=== PATIENT | male | born 1935 | race African-American/Black ===

== ENCOUNTER → 2016-07-09 | Outpatient (CLI) | payer MEDICARE, BC ==
--- NOTE | 2016-07-10 12:48 | XCELERA REPORT ---
[address] [address] Lower Extremity Venous Evaluation Name: GURPREET RAO Age: 81 yrs Gender: Male : 1935 Patient Status: Outpatient Patient Location: Study Date: 07/09/2016 01:18 PM Procedure: Color flow and duplex imaging of the veins of the left lower extremity as well as the right Common Femoral vein. Reason For Study: LLE SWELLING Ordering Physician: ROSY SALMON Performed By: Carissa Aponte Right Sided Venous Evaluation The right common femoral vein is fully compressible. Spontaneous and phasic flow is present in the right common femoral vein. Left Sided Venous Evaluation Non vascular lucent cyst in the Popliteal fossa. 2.5 x 1.9 x 4.5 cms. Normal vessel filling wall to wall, compression and augmentation as well as Colour flow down to the infrageniculate veins. Interpretation Summary No duplex evidence of DVT or obstruction in the left lower extremity nor in the right Common Femoral vein. Popliteal cyst noted on the left. : ROSY SALMON > Deepak Hoover
== END ==
LOC: SP 13:12
PROVIDERS: ATTEND Internal Medicine
DX: R22.42 Localized swelling, mass and lump, left lower limb (principal)
CPT/HCPCS: 93971

== ENCOUNTER → 2016-07-16 | Outpatient (CLI) | payer MEDICARE, BC | LOC: RAD 13:11 | PROVIDERS: ATTEND Internal Medicine | DX: M25.511 Pain in right shoulder (principal); M75.101 Unspecified rotator cuff tear or rupture of right shoulder, not specified as traumatic; X58.XXXA Exposure to other specified factors, initial encounter ==

== ENCOUNTER → 2017-08-26 | Outpatient (CLI) | payer MEDICARE, BC ==
[2017-08-26 14:58] LABS: ABSOLUTE EOSINOPHILS # (AUTO) 0.2 10^3/uL (0.0-0.6); ABSOLUTE LYMPHOCYTES (AUTO) 0.8 10^3/uL (0.5-4.7); ABSOLUTE MONOCYTES (AUTO) 0.6 10^3/uL (0.1-1.4); ABSOLUTE NEUT (AUTO) 2.4 10^3/uL (1.7-8.2); BASOPHILS % (AUTO) 0.8 % (0-2); EOSINOPHILS % (AUTO) 5.8 % (0-6); HEMATOCRIT 34.4 % (37.9-51.0); HEMOGLOBIN 11.4 g/dL (13.5-17.0); LYMPHOCYTES % (AUTO) 19.5 % (13-45); MEAN CORPUSCULAR HEMOGLOBIN 28.6 pg (27.0-33.4); MEAN CORPUSCULAR HGB CONC 33.1 g/dL (32.0-36.0); MEAN CORPUSCULAR VOLUME 87 fl (80-97); MONOCYTES % (AUTO) 15.6 % (3-13); PLATELET COUNT 219 10^3/uL (150-450); RED BLOOD COUNT 3.97 10^6/uL (4.35-5.55); RED CELL DISTRIBUTION WIDTH 14.4 % (11.5-14.0); SEGMENTED NEUTROPHILS % (AUTO) 58.3 % (42-78); TOTAL CELLS COUNTED % (AUTO) 100 %; WHITE BLOOD COUNT 4.1 10^3/uL (4.0-10.5)
[2017-08-26 15:11] LABS: APPEARANCE,URINE SLIGHTLY-CLOUDY; BILIRUBIN,URINE NEGATIVE (NEGATIVE); COLOR,URINE YELLOW; GLUCOSE, URINE NEGATIVE (NEGATIVE); KETONES,URINE NEGATIVE (NEGATIVE); LEUKOCYTE ESTERASE,URINE NEGATIVE (NEGATIVE); NITRITE,URINE NEGATIVE (NEGATIVE); PROTEIN,URINE NEGATIVE (NEGATIVE); URINE SPECIFIC GRAVITY 1.016; UROBILINOGEN,URINE NEGATIVE mg/dL (<2.0)
[2017-08-26 15:23] LABS: ALANINE AMINOTRANSFERASE 73 U/L (21-72); ALBUMIN 3.2 g/dL (3.5-5.0); ALKALINE PHOSPHATASE 149 U/L (38-126); ANION GAP 9 (5-19); ASPARTATE AMINO TRANSFERASE 72 U/L (17-59); BILIRUBIN,DIRECT 0.3 mg/dL (0.0-0.4); BILIRUBIN,TOTAL 0.3 mg/dL (0.2-1.3); BLOOD UREA NITROGEN 20 mg/dL (7-20); CALCIUM 9.3 mg/dL (8.4-10.2); CARBON DIOXIDE 32 mmol/L (22-30); CHLORIDE 98 mmol/L (98-107); GLUCOSE 104 mg/dL (75-110); POTASSIUM 4.5 mmol/L (3.6-5.0); SODIUM 138.5 mmol/L (137-145); TOTAL PROTEIN 6.2 g/dL (6.3-8.2); URIC ACID 4.5 mg/dL (3.5-8.5)
[2017-08-26 15:39] LABS: FREE T4 (FREE THYROXINE) 0.88 ng/dL (0.78-2.19)
[2017-08-26 15:54] LABS: THYROID STIMULATING HORMONE 3.34 uIU/mL (0.47-4.68)
[2017-08-27 11:40] LABS: CREATININE URINE 91.3 mg/dL (Not Estab.); MICROALBUMIN URINE 21.9 ug/mL (Not Estab.)
== END ==
LOC: OD 13:32
PROVIDERS: ATTEND Internal Medicine
DX: I10 Essential (primary) hypertension (principal)
CPT/HCPCS: 36415; 80053; 81001; 82043; 82570; 84439; 84443; 84550; 85025

== ENCOUNTER → 2017-08-27 | Outpatient (CLI) | payer MEDICARE, BC ==
--- NOTE | 2017-08-27 11:22 | RADIOLOGY REPORT (SQ) ---
EXAM DESCRIPTION: WRIST LEFT 2 VIEWS COMPLETED DATE/TIME: 08/27/2017 10:59 am REASON FOR STUDY: PAIN IN LEFT WRIST M25.532 PAIN IN LEFT WRIST COMPARISON: None. NUMBER OF VIEWS: Three views. TECHNIQUE: AP, lateral, and oblique radiographic images acquired of the left wrist. LIMITATIONS: None. FINDINGS: MINERALIZATION: Normal. BONES: No acute fracture or dislocation. No worrisome bone lesions. Normal alignment. No significant osteophytes. JOINTS: No erosions. No pat-articular osteopenia. No chondrocalcinosis. SOFT TISSUES: No swelling. No calcifications. OTHER: No other significant finding. IMPRESSION: NEGATIVE STUDY OF THE LEFT WRIST. NO EXPLANATION FOR PAIN. TECHNICAL DOCUMENTATION: JOB ID: [id number] [employer]- All Rights Reserved Reading location - IP/workstation name: [email or web address]
== END ==
LOC: OD 10:34
PROVIDERS: ATTEND Internal Medicine
DX: M25.532 Pain in left wrist (principal)

== ENCOUNTER → 2018-04-06 | Outpatient (CLI) | payer MEDICARE, BC ==
--- NOTE | 2018-04-06 15:29 | RADIOLOGY REPORT (SQ) ---
EXAM DESCRIPTION: CT ABD/PELVIS NO ORAL OR IV COMPLETED DATE/TIME: 04/06/2018 3:02 pm REASON FOR STUDY: RLQ PAIN (R10.31) R10.31 RIGHT LOWER QUADRANT PAIN COMPARISON: CT abdomen pelvis 02/25/2012, 05/23/2010 CT chest 03/05/2016 TECHNIQUE: CT scan of the abdomen and pelvis performed without intravenous or oral contrast. Images reviewed with lung, soft tissue, and bone windows. Reconstructed coronal and sagittal MPR images revi ewed. All images stored on PACS. All CT scanners at this facility use dose modulation, iterative reconstruction, and/or weight based d osing when appropriate to reduce radiation dose to as low as reasonably achievable (ALARA). [facility]: Dose Right [facility]: CareDose [facility]: Dose Right [facility]: Teradose 4D [facility]: Smart [employer] RADIATION DOSE: CT Rad equipment meets quality standard of care and radiation dose reduction techniq ues were employed. CTDIvol: 4.0 mGy. DLP: 213 mGy-cm.mGy. LIMITATIONS: None. FINDINGS: LOWER CHEST: No significant findings. No nodules or infiltrates. Moderate coronary artery calcification NON-CONTRASTED LIVER, SPLEEN, ADRENALS: Evaluation limited by lack of IV contrast. No identified sign ificant masses. PANCREAS: No masses. No peripancreatic inflammatory changes. GALLBLADDER: Surgically absent RIGHT KIDNEY AND URETER: Complex cyst 3.3 cm right midpole kidney posteriorly with septation and calc ifications. Follow-up dedicated renal ultrasound recommended. Punctate calcifications in the right renal hilum upper and lower poles, likely tiny intrarenal nonobstructive 2 mm stones. No hydroneph rosis or hydroureter. LEFT KIDNEY AND URETER: No suspicious masses. Assessment limited by lack of IV contrast. Tiny less than 2 mm intrarenal upper and lower pole nonobstructive stones No hydronephrosis or hydroureter. AORTA AND RETROPERITONEUM: No aneurysm. No retroperitoneal masses or adenopathy. BOWEL AND PERITONEAL CAVITY: No obvious masses or inflammatory changes. No free fluid. APPENDIX: Normal. PELVIS, BLADDER, AND ABDOMINAL WALL:No abnormal masses. No free fluid. Bladder normal. Radiotherapy treatment seeds in the prostate BONES: Diffuse degenerative changes lumbar spine OTHER: No other significant finding. IMPRESSION: No acute findings. Complex cyst 3.3 cm right midpole kidney posteriorly, recommend dedicated renal ultrasound for follow up COMMENT: Quality ID # [id number]: Final reports with documentation of one or more dose reduction techniques (e.g., Automated exposure control, adjustment of the mA and/or kV according to patient size, use of iterative reconstruction technique) TECHNICAL DOCUMENTATION: JOB ID: [id number] [employer]- All Rights Reserved Reading location - IP/workstation name: [facility]
== END ==
LOC: RAD 14:33
PROVIDERS: ATTEND Internal Medicine
DX: R10.31 Right lower quadrant pain (principal)
CPT/HCPCS: 74176

== ENCOUNTER → 2018-04-11 | Outpatient (CLI) | payer MEDICARE, BC ==
--- NOTE | 2018-04-11 15:50 | RADIOLOGY REPORT (SQ) ---
EXAM DESCRIPTION: U/S RETROPERITON (RENAL/AORTA) COMPLETED DATE/TIME: 04/11/2018 2:15 pm REASON FOR STUDY: RLQ PAIN R10.31 RIGHT LOWER QUADRANT PAIN COMPARISON: CT abdomen and pelvis examination dated 04/06/2017 TECHNIQUE: Dynamic and static grayscale images acquired of the kidneys and bladder and recorded on P ACS. Additional selected color Doppler and spectral images recorded. LIMITATIONS: None. FINDINGS: RIGHT KIDNEY: The right kidney measures 7.5 cm in length, the measurement may be underest imated due to limited visualization due to bowel gas. In the superior mid aspect of the kidney, a 3. 0 x 3.1 x 2.8 cm cyst. This finding may correlate to the CT examination dated 04/06/2018. No eviden ce of hydronephrosis. LEFT KIDNEY: The visualization of the left kidney is also somewhat limited due to bowel gas. The me asurement may be slightly underestimated. The left kidney measures 8.5 cm in length. Normal echogen icity. No solid or suspicious masses. No hydronephrosis. No calcifications. BLADDER: The urinary bladder is incompletely distended. The patient voided prior to the examination . OTHER FINDINGS: No other significant finding. IMPRESSION: 1. The examination is somewhat limited due to overlying bowel gas. 2. A cyst is identified in the superior mid aspect of the right kidney. This finding may correlate to the CT examination dated 04/06/2018. A follow-up noncontrast CT kidney examination in six months to document for stability. TECHNICAL DOCUMENTATION: JOB ID: [id number] [employer]- All Rights Reserved Reading location - IP/workstation name: [email or web address]
== END ==
LOC: RAD 12:37
PROVIDERS: ATTEND Internal Medicine
DX: K76.89 Other specified diseases of liver (principal); R10.31 Right lower quadrant pain
CPT/HCPCS: 76770

== ENCOUNTER → 2018-05-04 | Outpatient (CLI) | payer MEDICARE, BC ==
--- NOTE | 2018-05-04 16:18 | RADIOLOGY REPORT (SQ) ---
EXAM DESCRIPTION: CHEST PA/LATERAL COMPLETED DATE/TIME: 05/04/2018 3:58 pm REASON FOR STUDY: PRE-OP COMPARISON: 11/16/2012 EXAM PARAMETERS: NUMBER OF VIEWS: two views TECHNIQUE: Digital Frontal and Lateral radiographic views of the chest acquired. RADIATION DOSE: NA LIMITATIONS: none FINDINGS: LUNGS AND PLEURA: No opacities, masses or pneumothorax. No pleural effusion. MEDIASTINUM AND HILAR STRUCTURES: No masses or contour abnormalities. HEART AND VASCULAR STRUCTURES: Heart normal size. No evidence for failure. BONES: No acute findings. HARDWARE: None in the chest. OTHER: No other significant finding. IMPRESSION: NO SIGNIFICANT RADIOGRAPHIC FINDING IN THE CHEST. TECHNICAL DOCUMENTATION: JOB ID: [id number] [employer]- All Rights Reserved Reading location - IP/workstation name: [email or web address]
--- NOTE | 2018-05-04 19:11 | EKG REPORT ---
SEVERITY:- OTHERWISE NORMAL ECG - SINUS RHYTHM BORDERLINE LEFT AXIS DEVIATION : Confirmed by: David Gunn 04-May-2018 19:09:30
== END ==
LOC: OD 14:54
PROVIDERS: ATTEND Orthopaedic Surgery
DX: M17.12 Unilateral primary osteoarthritis, left knee (principal)
CPT/HCPCS: 71046; 93005; 93010

== ENCOUNTER 2018-06-01 05:32 | Inpatient (IN) | payer MEDICARE, BC ==
[~2018-06-01 05:32] MED LIST: BUPIVACAINE INJ/PF LIPOSOME/PF 266 MG/20 ML SDV INJ PRN; CEFAZOLIN INJ 1 GM VIAL IV PRN; CEFAZOLIN INJ 1 GM VIAL ONE; CLINDAMYCIN 600 MG/D5W RTU 600 MG/50 ML RTUPB IV PRN; IBUPROFEN 800 MG in NORMAL SALINE 250 ML IV PRN; LACTATED RINGERS 1000 ML IV PRN; LANSOPRAZOLE 15 MG TAB.RAP.DR ONE; LANSOPRAZOLE 15 MG TAB.RAP.DR PO PRN; LIDOCAINE 0.5% INJ-PF (5 MG/ML) 50 ML SDV SUBCUT PRN; OXYCODONE HCL SR 10 MG TABLET PO ONE; OXYCODONE HCL SR 10 MG TABLET PO PRN; VANCOMYCIN HCL 1,000 MG in DEXTROSE 5%-WATER 250 ML IV PRN
[2018-06-01] MEDS ORDERED: LIDOCAINE 2% INJ (20 MG/ML) 20 ML MDV ONE (06:44)
[2018-06-01] MEDS ORDERED: BUPIVACAINE HCL/DEX-WATER/PF 15 MG/2 ML AMPULE ONE (06:44)
[2018-06-01] MEDS ORDERED: FENTANYL CITRATE INJ/PF 100 MCG/2 ML AMPUL ONE (06:45)
[2018-06-01] MEDS ORDERED: LIDOCAINE 2% INJ-PF (20 MG/ML) 10 ML AMPUL ONE (06:45)
[2018-06-01] MEDS ORDERED: PROPOFOL INJ 200 MG/20 ML VIAL IV ONE (06:46)
[2018-06-01] MEDS ORDERED: MIDAZOLAM 2 MG/2 ML INJ ONE (06:46)
[2018-06-01] MEDS ORDERED: EPHEDRINE SULFATE INJ 50 MG/1 ML AMPULE ONE (06:46)
[2018-06-01] MEDS ORDERED: ONDANSETRON HCL INJ/PF 4 MG/2 ML SDV ONE (06:46)
[2018-06-01] MEDS ORDERED: THROMBIN (BOVINE) TOPICAL 20000 UNIT VIAL ONE (07:07)
[2018-06-01] MEDS ORDERED: BUPIVACAINE HCL 0.5%-EPI 1:200000 INJ/PF 30 ML VIAL ONE (07:07)
[2018-06-01] MEDS ORDERED: CLINDAMYCIN 600 MG/D5W RTU 600 MG/50 ML RTUPB IV ONE (07:13)
[2018-06-01] MEDS ORDERED: MEPERIDINE HCL/PF INJ 25 MG/1 ML DISP.SYRIN IV PRN (07:28)
[2018-06-01] MEDS ORDERED: PROMETHAZINE HCL INJ 25 MG/1 ML VIAL IV PRN ×2 (07:28)
[2018-06-01] MEDS ORDERED: MORPHINE SULFATE 10 MG/ML INJ IV PRN ×5 (07:28→08:47)
[2018-06-01] MEDS ORDERED: FENTANYL CITRATE INJ/PF 100 MCG/2 ML AMPUL IV PRN ×3 (07:28)
[2018-06-01] MEDS ORDERED: DIPHENHYDRAMINE HCL 50 MG/ML VIAL IV PRN ×2 (07:28→08:47)
[2018-06-01] MEDS ORDERED: ONDANSETRON 4 MG TAB.RAPDIS PO PRN (08:47)
[2018-06-01] MEDS ORDERED: MAG HYDROX/AL HYDROX/SIMETH SUSP 30 ML UDCUP PO PRN (08:47)
[2018-06-01] MEDS ORDERED: ONDANSETRON HCL INJ/PF 4 MG/2 ML SDV IV PRN (08:47)
[2018-06-01] MEDS ORDERED: ZOLPIDEM TARTRATE 5 MG TABLET PO PRN (08:47)
[2018-06-01] MEDS ORDERED: RINGERS SOLUTION,LACTATED 1,000 ML IV PRN (08:47)
--- NOTE | 2018-06-01 08:52 | Operative Report ---
Operative Report DATE OF SURGERY: 06/01/18 PREOPERATIVE DIAGNOSIS: Left knee arthritis OPERATION: Left knee arthroplasty SURGEON: QAMAR BURNETT ANESTHESIA: Spinal TISSUE REMOVED OR ALTERED: Bone to pathology ESTIMATED BLOOD LOSS: 100 PROCEDURE: Implants used: Femur: Jackson triathlon size 7 CR femur Tibia: 7 tibia Tibial liner: 11 mm CS insert Patella: 40 mm oval patella Procedure with the patient supine on the operating table the left the limb is prepped and draped in a sterile fashion. The limb was elevated for exsanguination and the tourniquet inflated to 280 torr. A standard midline median parapatellar approach the knee is taken. Access is gained to the femoral canal through the intercondylar notch. Intramedullary alignment instrumentation used to resect 10 mm of distal femur in 5 of valgus. Sizing guide indicated a size 7 femur. Appropriate cutting jig is then used to fashion anterior posterior and chamfer cuts. A trial reduction femurs performed and this is judged to be adequate. The medial femoral condyle has a significant large subchondral cyst. This is evacuated of the soft tissue. The femoral component is displaced slightly laterally a midline to improve the support for the femoral component. Attention was next turned to the tibia. Using an extra medullary alignment system 13 millimeters was resected off the lateral tibial plateau to make up for a medial tibial plateau defect.. This is sized to a size 7 tibia. A trial reduction was now performed with a 7 femur and a 7 tibia using a 11 millimeters spacer. It is full extension and central patellofemoral tracking. The articular surface the patella was next resected using an oscillating saw. All trial implants were removed. Polymethylmethacrylate is mixed and used to cement the above implants in place. On adequate curing the cement excess cement was removed the tourniquet was deflated hemostasis obtained the wound is then closed in layers using interrupted Vicryl followed by luis. A sterile compressive dressing was applied and the patient returned to recovery room in satisfactory condition.
--- NOTE | 2018-06-01 09:37 | RADIOLOGY REPORT (SQ) ---
EXAM DESCRIPTION: KNEE LEFT 2 VIEWS COMPLETED DATE/TIME: 06/01/2018 9:28 am REASON FOR STUDY: Post OP -Long Cassette in PACU M17.12 UNILATERAL PRIMARY OSTEOARTHRITIS, LEFT KNE E COMPARISON: None. NUMBER OF VIEWS: Two views left knee TECHNIQUE: Digital radiographic images of the left knee post-procedure. LIMITATIONS: None. FINDINGS: BONES: No worrisome or unexpected findings post-procedure. Bones are osteopenic/osteopor otic DEVICE: Cemented total knee replacement with patellar resurfacing SOFT TISSUES: No worrisome findings. Expected postoperative soft tissue changes. IMPRESSION: SATISFACTORY POSTOPERATIVE LEFT KNEE. TECHNICAL DOCUMENTATION: JOB ID: [id number] [employer]- All Rights Reserved Reading location - IP/workstation name: [email or web address]
[2018-06-01] MEDS ORDERED: TRANEXAMIC ACID INJ/PF 1,000 MG/10 ML SDV IV ONE (11:53)
[2018-06-01] MEDS: PRENATAL VITAMIN W DHA CAPSULE PO SCH (14:14)
[2018-06-01] MEDS: SENNOSIDES/DOCUSATE 8.6-50 MG 1 EACH TABLET PO SCH ×2 (14:14→17:36)
[2018-06-01] MEDS: TRANEXAMIC ACID INJ/PF 1,000 MG/10 ML SDV IV SCH (14:14)
[2018-06-01] MEDS: IBUPROFEN 800 MG in NORMAL SALINE 250 ML IV SCH ×2 (14:14→22:16)
[2018-06-01] MEDS: OXYCODONE HCL SR 10 MG TABLET PO SCH ×2 (14:14→22:17)
[2018-06-01] MEDS: OXYCODONE HCL IR 5 MG TABLET PO PRN (14:18)
[2018-06-01] MEDS ORDERED: ACETAMINOPHEN IV ONE (14:47)
[2018-06-01] MEDS ORDERED: ACETAMINOPHEN 1,000 MG/100 ML RTUPB IV ONE (15:00)
[2018-06-01] MEDS ORDERED: VANCOMYCIN HCL 1,000 MG in DEXTROSE 5%-WATER 250 ML IV ONE (20:47)
[2018-06-02 06:21] LABS: HEMATOCRIT 30.1 % (37.9-51.0); HEMOGLOBIN 9.9 g/dL (13.5-17.0); MEAN CORPUSCULAR HEMOGLOBIN 27.8 pg (27.0-33.4); MEAN CORPUSCULAR VOLUME 84 fl (80-97); PLATELET COUNT 196 10^3/uL (150-450); RED BLOOD COUNT 3.57 10^6/uL (4.35-5.55); RED CELL DISTRIBUTION WIDTH 15.9 % (11.5-14.0); WHITE BLOOD COUNT 6.4 10^3/uL (4.0-10.5)
[2018-06-02] MEDS: IBUPROFEN 800 MG in NORMAL SALINE 250 ML IV SCH ×3 (06:30→21:23)
[2018-06-02] MEDS: LANSOPRAZOLE 30 MG TAB.RAP.DR PO SCH (06:33)
[2018-06-02 06:41] LABS: BLOOD UREA NITROGEN 14 mg/dL (7-20); CALCIUM 8.3 mg/dL (8.4-10.2); GLUCOSE 103 mg/dL (75-110); POTASSIUM 4.4 mmol/L (3.6-5.0)
[2018-06-02 06:47] LABS: CARBON DIOXIDE 29 mmol/L (22-30); CHLORIDE 103 mmol/L (98-107); SODIUM 134.7 mmol/L (137-145)
[2018-06-02 06:51] LABS: ANION GAP 3 (5-19)
--- NOTE | 2018-06-02 06:51 | PDOC PROGRESS REPORT ---
Subjective Progress Note for:: 06/02/18 Reason For Visit: M17.12 UNILATERAL PRIMARY OSTEOARTHRITIS, LEFT KNE 83-year-old black male now postop day 1 status post left knee arthroplasty. Uneventful postoperative night. Patient ambulated 40 feet with physical therapy yesterday. Physical Exam Vital Signs: Temp Pulse Resp BP Pulse Ox 37.4 C 96 19 97/56 L 97 06/01/18 22:59 06/01/18 22:59 06/01/18 22:59 06/01/18 22:59 06/01/18 22:59 Intake & Output 05/31/18 06/01/18 06/02/18 06:59 06:59 06:59 Intake Total 250 6194 Output Total 2850 Balance 250 3344 Weight 77.8 kg General appearance: PRESENT: no acute distress Head exam: PRESENT: normocephalic Respiratory exam: PRESENT: unlabored Cardiovascular exam: PRESENT: RRR Pulses: PRESENT: +1 pedal pulses bilateral Vascular exam: PRESENT: normal capillary refill GI/Abdominal exam: PRESENT: soft Rectal exam: PRESENT: deferred Extremities exam: PRESENT: other - Left knee dressing clean dry and intact Neurological exam: PRESENT: alert, awake, oriented to person, oriented to place, oriented to time, oriented to situation. ABSENT: motor sensory deficit Psychiatric exam: PRESENT: appropriate affect, normal mood. ABSENT: homicidal ideation, suicidal ideation Skin exam: PRESENT: dry, intact, warm. ABSENT: cyanosis, rash Results Laboratory Results: 06/02/18 05:56 06/02/18 05:56 WBC 6.4 RBC 3.57 L Hgb 9.9 L Hct 30.1 L MCV 84 MCH 27.8 MCHC 33.0 RDW 15.9 H Plt Count 196 Impressions: Knee X-Ray 06/01/18 08:49 IMPRESSION: SATISFACTORY POSTOPERATIVE LEFT KNEE. Status: Imported from PACS Assessment & Plan - Diagnosis (1) Arthritis of knee, left Is this a current diagnosis for this admission?: Yes Plan: 83-year-old black male status post left knee arthroplasty. Continue to mobilize with physical therapy and weightbearing as tolerated basis. [facility]. - Time Time Spent with patient: 15-24 minutes Anticipated discharge: SNF Within: when bed available
[2018-06-02] MEDS: OXYCODONE HCL IR 5 MG TABLET PO PRN (08:52)
[2018-06-02] MEDS: OXYCODONE HCL SR 10 MG TABLET PO SCH ×2 (09:00→21:23)
[2018-06-02] MEDS: PRENATAL VITAMIN W DHA CAPSULE PO SCH (09:00)
[2018-06-02] MEDS: SENNOSIDES/DOCUSATE 8.6-50 MG 1 EACH TABLET PO SCH ×2 (09:00→17:25)
[2018-06-02] MEDS: ASPIRIN 325 MG TABLET PO SCH (09:00)
[2018-06-02] MEDS: VENLAFAXINE HCL 75 MG CAP.SR.24H PO SCH (09:00)
[2018-06-02] MEDS ORDERED: (PENDING PHARMACY ID) (Potassium Citrate [Potassium Citrate Er] 10 MEQ) PO SCH (10:00)
[2018-06-02] MEDS ORDERED: (PENDING PHARMACY ID) (Potassium Citrate [Urocit-K] 10 MEQ) PO SCH (10:00)
[2018-06-02] MEDS ORDERED: (PENDING PHARMACY ID) (Venlafaxine Hcl [Venlafaxine Hcl Er] 75 MG) PO SCH (10:00)
[2018-06-02] MEDS: TRANEXAMIC ACID INJ/PF 1,000 MG/10 ML SDV IV SCH (10:47)
[2018-06-03] MEDS: IBUPROFEN 800 MG in NORMAL SALINE 250 ML IV SCH (05:27)
[2018-06-03] MEDS: LANSOPRAZOLE 30 MG TAB.RAP.DR PO SCH (05:28)
[2018-06-03 05:59] LABS: HEMATOCRIT 29.3 % (37.9-51.0); HEMOGLOBIN 9.6 g/dL (13.5-17.0); MEAN CORPUSCULAR HEMOGLOBIN 27.6 pg (27.0-33.4); MEAN CORPUSCULAR HGB CONC 32.6 g/dL (32.0-36.0); MEAN CORPUSCULAR VOLUME 85 fl (80-97); PLATELET COUNT 185 10^3/uL (150-450); RED BLOOD COUNT 3.46 10^6/uL (4.35-5.55); WHITE BLOOD COUNT 8.7 10^3/uL (4.0-10.5)
[2018-06-03] MEDS: ASPIRIN 325 MG TABLET PO SCH (08:23)
--- NOTE | 2018-06-03 08:40 | PDOC PROGRESS REPORT ---
Subjective Progress Note for:: 06/03/18 Reason For Visit: M17.12 UNILATERAL PRIMARY OSTEOARTHRITIS, LEFT KNE 83-year-old black male now postop day 2 status post left knee arthroplasty. Patient with minimal complaints overnight. Physical Exam Vital Signs: Temp Pulse Resp BP Pulse Ox 36.9 C 94 19 105/53 L 94 06/02/18 22:54 06/02/18 22:54 06/02/18 22:54 06/02/18 22:54 06/02/18 22:54 Intake & Output 06/02/18 06/03/18 06/04/18 06:59 06:59 06:59 Intake Total 6194 1300 Output Total 2850 600 Balance 3344 700 Weight 77.8 kg 82.7 kg General appearance: PRESENT: no acute distress, mild distress Respiratory exam: PRESENT: unlabored Cardiovascular exam: PRESENT: RRR Pulses: PRESENT: +1 pedal pulses bilateral Vascular exam: PRESENT: normal capillary refill GI/Abdominal exam: PRESENT: soft Rectal exam: PRESENT: deferred Extremities exam: PRESENT: other - Left lower extremity dressing change. Wound is well approximated with luis. There is no active drainage. There is minimal edema. There is a significant flexion contracture. Neurological exam: PRESENT: alert, awake, oriented to person, oriented to place, oriented to time, oriented to situation. ABSENT: motor sensory deficit Psychiatric exam: PRESENT: appropriate affect, normal mood. ABSENT: homicidal ideation, suicidal ideation Skin exam: PRESENT: dry, intact, warm. ABSENT: cyanosis, rash Results Laboratory Results: 06/03/18 05:07 06/02/18 05:56 06/03/18 05:07 WBC 8.7 RBC 3.46 L Hgb 9.6 L Hct 29.3 L MCV 85 MCH 27.6 MCHC 32.6 RDW 16.0 H Plt Count 185 Impressions: Knee X-Ray 06/01/18 08:49 IMPRESSION: SATISFACTORY POSTOPERATIVE LEFT KNEE. Status: Imported from PACS Assessment & Plan - Diagnosis (1) Arthritis of knee, left Is this a current diagnosis for this admission?: Yes Plan: Postop day 2 status post left knee arthroplasty patient is encouraged to work on extension in bed by placing a pillow or rolled towel behind his heel. Otherwise he will continue with physical therapy. Plans for discharge to nursing home facility are in process. Hematocrit remains above 29%. Patient ambulate 50 feet with physical therapy yesterday. - Time Time Spent with patient: 15-24 minutes Anticipated discharge: SNF Within: when bed available
[2018-06-03] MEDS: SENNOSIDES/DOCUSATE 8.6-50 MG 1 EACH TABLET PO SCH ×3 (12:35→22:04)
[2018-06-03] MEDS: PRENATAL VITAMIN W DHA CAPSULE PO SCH ×2 (12:35→12:40)
[2018-06-03] MEDS: VENLAFAXINE HCL 75 MG CAP.SR.24H PO SCH (13:34)
[2018-06-03] MEDS: TRANEXAMIC ACID INJ/PF 1,000 MG/10 ML SDV IV SCH (14:59)
[2018-06-03] MEDS: OXYCODONE HCL IR 5 MG TABLET PO PRN (22:35)
[2018-06-04] MEDS: LANSOPRAZOLE 30 MG TAB.RAP.DR PO SCH (05:38)
[2018-06-04 07:06] LABS: HEMOGLOBIN 8.2 g/dL (13.5-17.0); MEAN CORPUSCULAR HEMOGLOBIN 27.7 pg (27.0-33.4); MEAN CORPUSCULAR HGB CONC 32.7 g/dL (32.0-36.0); MEAN CORPUSCULAR VOLUME 85 fl (80-97); PLATELET COUNT 175 10^3/uL (150-450); RED BLOOD COUNT 2.94 10^6/uL (4.35-5.55); WHITE BLOOD COUNT 7.2 10^3/uL (4.0-10.5)
[2018-06-04] MEDS: OXYCODONE HCL IR 5 MG TABLET PO PRN (07:27)
[2018-06-04] MEDS: ASPIRIN 325 MG TABLET PO SCH (08:16)
[2018-06-04] MEDS: PRENATAL VITAMIN W DHA CAPSULE PO SCH (10:04)
[2018-06-04] MEDS: SENNOSIDES/DOCUSATE 8.6-50 MG 1 EACH TABLET PO SCH ×2 (10:04→21:42)
[2018-06-04] MEDS: VENLAFAXINE HCL 75 MG CAP.SR.24H PO SCH ×2 (10:05→10:10)
[2018-06-04] MEDS: ACETAMINOPHEN 325 MG TABLET PO PRN (21:42)
[2018-06-05] MEDS: LANSOPRAZOLE 30 MG TAB.RAP.DR PO SCH (06:36)
[2018-06-05] MEDS: ASPIRIN 325 MG TABLET PO SCH (07:57)
[2018-06-05] MEDS: PRENATAL VITAMIN W DHA CAPSULE PO SCH (11:06)
[2018-06-05] MEDS: VENLAFAXINE HCL 75 MG CAP.SR.24H PO SCH (11:07)
[2018-06-05] MEDS: SENNOSIDES/DOCUSATE 8.6-50 MG 1 EACH TABLET PO SCH ×2 (11:07→22:56)
[2018-06-05] MEDS: ACETAMINOPHEN 325 MG TABLET PO PRN ×2 (11:14→22:57)
--- NOTE | 2018-06-05 14:40 | PDOC PROGRESS REPORT ---
Subjective Progress Note for:: 06/05/18 Subjective:: Patient complaining of some swelling and pain of the left knee. No other issues Reason For Visit: M17.12 UNILATERAL PRIMARY OSTEOARTHRITIS, LEFT KNE Physical Exam Vital Signs: Temp Pulse Resp BP Pulse Ox 37.1 C 90 16 118/63 95 06/04/18 12:17 06/04/18 12:17 06/04/18 12:17 06/04/18 12:17 06/04/18 12:17 Intake & Output 06/03/18 06/04/18 06/05/18 06:59 06:59 06:59 Intake Total 1300 522 354 Output Total 600 625 140 Balance 700 -103 214 Weight 82.7 kg 77.7 kg Adult Front & Back Image: 1 - Mild erythema and swelling of the left knee with no drainage or bleeding with intact luis. Range of motion limited second to pain. Neurovascular intact distally. Results Laboratory Results: 06/04/18 05:36 06/02/18 05:56 06/04/18 05:36 WBC 7.2 RBC 2.94 L Hgb 8.2 L Hct 25.0 L MCV 85 MCH 27.7 MCHC 32.7 RDW 16.0 H Plt Count 175 Impressions: Knee X-Ray 06/01/18 08:49 IMPRESSION: SATISFACTORY POSTOPERATIVE LEFT KNEE. Assessment & Plan - Plan Summary Plan Summary: 83-year-old gentleman status post left knee arthroplasty. Continue physical therapy and pain control. Continue DVT prophylaxis. Most likely will be discharged on Wednesday.
--- NOTE | 2018-06-05 14:44 | PDOC PROGRESS REPORT ---
Subjective Progress Note for:: 06/05/18 Subjective:: Patient was working with therapy today ambulated well today. Complains of some swelling and pain in the left knee. Reason For Visit: M17.12 UNILATERAL PRIMARY OSTEOARTHRITIS, LEFT KNE Physical Exam Vital Signs: Temp Pulse Resp BP Pulse Ox 36.8 C 69 16 137/59 H 95 06/05/18 11:26 06/05/18 11:26 06/05/18 11:26 06/05/18 11:26 06/05/18 11:26 Intake & Output 06/04/18 06/05/18 06/06/18 06:59 06:59 06:59 Intake Total 522 970 Output Total 625 1015 Balance -103 -45 Weight 77.7 kg 76.7 kg Adult Front & Back Image: 1 - Some mild swelling and erythema of the left knee. No drainage. Neurovascular intact distally. Results Laboratory Results: 06/04/18 05:36 06/02/18 05:56 Impressions: Knee X-Ray 06/01/18 08:49 IMPRESSION: SATISFACTORY POSTOPERATIVE LEFT KNEE. Status: Image reviewed by me Assessment & Plan - Plan Summary Plan Summary: 83-year-old gentleman status post left knee arthroplasty. There is some erythema that may be just second to swelling and pain but will likely empirically start him on some IV antibiotics to be on the safe side.
[2018-06-05] MEDS: CLINDAMYCIN 600 MG/D5W RTU 600 MG/50 ML RTUPB IV SCH (22:55)
[2018-06-06] MEDS: CLINDAMYCIN 600 MG/D5W RTU 600 MG/50 ML RTUPB IV SCH ×2 (05:19→14:47)
[2018-06-06] MEDS: LANSOPRAZOLE 30 MG TAB.RAP.DR PO SCH (05:20)
[2018-06-06] MEDS: PRENATAL VITAMIN W DHA CAPSULE PO SCH (09:39)
[2018-06-06] MEDS: SENNOSIDES/DOCUSATE 8.6-50 MG 1 EACH TABLET PO SCH ×2 (09:39→21:54)
[2018-06-06] MEDS: ASPIRIN 325 MG TABLET PO SCH (09:39)
[2018-06-06] MEDS: VENLAFAXINE HCL 75 MG CAP.SR.24H PO SCH (09:39)
[2018-06-07] MEDS: LANSOPRAZOLE 30 MG TAB.RAP.DR PO SCH (05:42)
--- NOTE | 2018-06-07 06:37 | PDOC PROGRESS REPORT ---
Subjective Progress Note for:: 06/07/18 Reason For Visit: M17.12 UNILATERAL PRIMARY OSTEOARTHRITIS, LEFT KNE Elderly black male sitting in bed. Patient's awake although at times appears to be confused. Physical Exam Vital Signs: Temp Pulse Resp BP Pulse Ox 37.6 C 75 17 122/64 95 06/07/18 00:13 06/07/18 00:13 06/07/18 00:13 06/07/18 00:13 06/07/18 00:13 Intake & Output 06/05/18 06/06/18 06/07/18 06:59 06:59 06:59 Intake Total 807 832 9271 Output Total 3765 806 9959 Balance -45 292 -842 Weight 76.7 kg 73 kg 75.6 kg General appearance: PRESENT: no acute distress Respiratory exam: PRESENT: unlabored Cardiovascular exam: PRESENT: RRR Pulses: PRESENT: +1 pedal pulses bilateral Vascular exam: PRESENT: normal capillary refill GI/Abdominal exam: PRESENT: soft Rectal exam: PRESENT: deferred Extremities exam: PRESENT: other - Left knee dressing clean dry and intact. There is a considerable knee flexion contracture. I think this is largely result of the way the patient's sitting in bed with the knee flexed Skin exam: PRESENT: dry, intact, warm. ABSENT: cyanosis, rash Results Laboratory Results: 06/04/18 05:36 06/02/18 05:56 Impressions: Knee X-Ray 06/01/18 08:49 IMPRESSION: SATISFACTORY POSTOPERATIVE LEFT KNEE. Status: Imported from PACS Assessment & Plan - Diagnosis (1) Arthritis of knee, left Is this a current diagnosis for this admission?: Yes Plan: Status post knee arthroplasty. Awaiting group home facility placement. In the interim ongoing physical therapy for weightbearing as tolerated ambulation. The bed should be flexed at the knee and a pillow should be placed under the ankle to encourage extension of the knee. - Time Time Spent with patient: 15-24 minutes Anticipated discharge: SNF Within: when bed available
[2018-06-07] MEDS: ASPIRIN 325 MG TABLET PO SCH (08:32)
[2018-06-07] MEDS: ACETAMINOPHEN 325 MG TABLET PO PRN (08:37)
[2018-06-07] MEDS: PRENATAL VITAMIN W DHA CAPSULE PO SCH (10:13)
[2018-06-07] MEDS: SENNOSIDES/DOCUSATE 8.6-50 MG 1 EACH TABLET PO SCH ×2 (10:13→22:46)
[2018-06-07] MEDS: VENLAFAXINE HCL 75 MG CAP.SR.24H PO SCH (10:13)
--- NOTE | 2018-06-07 12:14 | PDOC TRANSFER SUMMARY ---
General - Admit/Disc Date/PCP Admission Date/Primary Care Provider: 06/01/18 05:32 ROSY SALMON MD Discharge Date: 06/07/18 - Discharge Diagnosis (1) Arthritis of knee, left Is this a current diagnosis for this admission?: Yes - Additional Information Resuscitation Status: Full Code Home Medications: Aspirin [Aspirin 325 mg Tablet] 1 tab PO QAM 08/14/12 Colchicine [Colchicine 0.6 mg Tablet] 0.6 mg PO DAILY 05/26/18 Lactobacillus Combo No.10 [Probiotic] 1 each PO DAILY 05/26/18 Multivit-Min/FA/Lycopen/Lutein [Centrum Silver Men Tablet] 1 each PO DAILY 05/26/18 Potassium Citrate [Potassium Citrate ER] 10 meq PO DAILY 05/26/18 Potassium Citrate [Urocit-K] 10 meq PO DAILY 05/26/18 Psyllium Husk [Metamucil] 05/26/18 Saliva Stimulant Comb. No.7 [Biotene Oralbalance] 1 applic PO ASDIR PRN 05/26/18 Venlafaxine HCl [Venlafaxine HCl ER] 75 mg PO ASDIR PRN 05/26/18 History of Present Illness Admission Date/PCP: 06/01/18 05:32 ROSY SALMON MD History of Present Illness: GURPREET RAO is a 83 year old male The patient is an 83-year-old black male with progressive left knee pain and functional disability second osteoarthritis. Patient is admitted for elective left knee arthroplasty. Hospital Course Hospital Course: Patient is admitted through the operating where he undergoes uncomplicated left knee arthroplasty. He makes slow steady progress with physical therapy a mbulating 100 feet by postop day #4. Wound remains clean dry and intact. Pain is well controlled with oral analgesics. Physical Exam Vital Signs: Temp Pulse Resp BP Pulse Ox 37.1 C 70 16 114/65 100 06/07/18 11:20 06/07/18 11:20 06/07/18 11:20 06/07/18 11:20 06/07/18 11:20 Intake & Output 06/06/18 06/07/18 06/08/18 06:59 06:59 06:59 Intake Total 612 1023 Output Total 320 1865 Balance 292 -842 Weight 73 kg 75.6 kg General appearance: PRESENT: no acute distress Head exam: PRESENT: normocephalic Respiratory exam: PRESENT: unlabored Cardiovascular exam: PRESENT: RRR Pulses: PRESENT: +1 pedal pulses bilateral Vascular exam: PRESENT: normal capillary refill Musculoskeletal exam: PRESENT: other - Left knee OpSite dressing remains clean dry and intact. There is approximately 15 degree flexion contracture reflecting the patient's bed positioning. Distal neurovascular examination is intact. Neurological exam: PRESENT: alert, awake, oriented to person, oriented to place, oriented to time, oriented to situation. ABSENT: motor sensory deficit Psychiatric exam: PRESENT: appropriate affect, normal mood. ABSENT: homicidal ideation, suicidal ideation Skin exam: PRESENT: dry, intact, warm. ABSENT: cyanosis, rash Results Laboratory Results: 06/04/18 05:36 06/02/18 05:56 Impressions: Knee X-Ray 06/01/18 08:49 IMPRESSION: SATISFACTORY POSTOPERATIVE LEFT KNEE. Status: Imported from PACS Transfer Plan - Disposition Transfer Plan: Patient to be transferred to a retirement facility for ongoing physical therapy for range of motion strengthening and weightbearing as tolerated the left lower extremity. [facility] for [facility]. - Time Spent with Patient Time spent with patient: Less than 30 Minutes Qualifiers - * PATIENT BEING DISCHARGED WITH ANY OF THE FOLLOWING DIAGNOSIS: No VTE patient discharged on overlapping Therapy?: Yes Plan Discharge Plan: Patient to follow-up with Dr. Villalobos and [facility] for surgery in 2 weeks for staple removal.
[2018-06-08] MEDS: LANSOPRAZOLE 30 MG TAB.RAP.DR PO SCH (05:27)
--- NOTE | 2018-06-08 07:14 | PDOC PROGRESS REPORT ---
Subjective Progress Note for:: 06/08/18 Reason For Visit: M17.12 UNILATERAL PRIMARY OSTEOARTHRITIS, LEFT KNE 83-year-old black male now postop day 7 status post left knee arthroplasty. Patient awaiting [facility] facility placement. Physical Exam Vital Signs: Temp Pulse Resp BP Pulse Ox 37.2 C 77 17 115/60 98 06/07/18 23:24 06/07/18 23:24 06/07/18 23:24 06/07/18 23:24 06/07/18 23:24 Intake & Output 06/07/18 06/08/18 06/09/18 06:59 06:59 06:59 Intake Total 1023 620 Output Total 1865 2000 Balance -842 -1380 Weight 75.6 kg 76.6 kg General appearance: PRESENT: no acute distress Respiratory exam: PRESENT: unlabored Cardiovascular exam: PRESENT: RRR Extremities exam: PRESENT: other - Left knee dressing clean dry and intact. Flexion contracture continues to be of concern to me Results Laboratory Results: 06/04/18 05:36 06/02/18 05:56 Impressions: Knee X-Ray 06/01/18 08:49 IMPRESSION: SATISFACTORY POSTOPERATIVE LEFT KNEE. Assessment & Plan - Diagnosis (1) Arthritis of knee, left Is this a current diagnosis for this admission?: Yes Plan: Awaiting [facility] facility placement - Time Time Spent with patient: 15-24 minutes Anticipated discharge: SNF Within: when bed available
[2018-06-08] MEDS: ASPIRIN 325 MG TABLET PO SCH (10:15)
[2018-06-08] MEDS: SENNOSIDES/DOCUSATE 8.6-50 MG 1 EACH TABLET PO SCH (10:15)
[2018-06-08] MEDS: PRENATAL VITAMIN W DHA CAPSULE PO SCH (10:16)
[2018-06-08] MEDS: VENLAFAXINE HCL 75 MG CAP.SR.24H PO SCH (12:13)
[2018-06-08 12:46] VITALS: BP 117/66
== END 2018-06-08 13:18 | DRG 470 ==
LOC: INOR 05:32 → 4S 13:48
PROVIDERS: ADMIT Orthopaedic Surgery; ATTEND Orthopaedic Surgery
PROC: 0SRD0J9 Replacement of Left Knee Joint with Synthetic Substitute, Cemented, Open Approach (ICD-10-PCS; principal; 2018-06-01 07:30)
DX: M17.12 Unilateral primary osteoarthritis, left knee (principal); Z79.899 Other long term (current) drug therapy; K21.9 Gastro-esophageal reflux disease without esophagitis; Z88.1 Allergy status to other antibiotic agents; Z88.3 Allergy status to other anti-infective agents; Z88.2 Allergy status to sulfonamides; Z88.8 Allergy status to other drugs, medicaments and biological substances
CPT/HCPCS: 01402; 36415; 80048; 85027; 88305; 88311; 94799; C1713; C1776; J0131; J0690; J1200; J1741; J2250; J2270; J2405; J2704; J3010; J3370; J3490; J7050; J7060; J7120

== ENCOUNTER → 2018-08-04 | Outpatient (CLI) | payer MEDICARE, BC ==
--- NOTE | 2018-08-04 16:44 | RADIOLOGY REPORT (SQ) ---
EXAM DESCRIPTION: CT HEAD WITHOUT COMPLETED DATE/TIME: 08/04/2018 4:31 pm REASON FOR STUDY: R41.3 OTHER AMNESIA R41.3 OTHER AMNESIA COMPARISON: 05/14/2015 TECHNIQUE: Axial images acquired through the brain without intravenous contrast. Images reviewed wi th bone, brain and subdural windows. Additional sagittal and coronal reconstructions were generated. Images stored on PACS. All CT scanners at this facility use dose modulation, iterative reconstruction, and/or weight based d osing when appropriate to reduce radiation dose to as low as reasonably achievable (ALARA). [facility]: Dose Right [facility]: CareDose [facility]: Dose Right [facility]: Teradose 4D [facility]: [employer] RADIATION DOSE: CT Rad equipment meets quality standard of care and radiation dose reduction techniq ues were employed. CTDIvol: 48.6 mGy. DLP: 954 mGy-cm. mGy. LIMITATIONS: None. FINDINGS: VENTRICLES: Normal size and contour. CEREBRUM: No masses. No hemorrhage. No midline shift. No evidence for acute infarction. Few scatte red areas of low density in the white matter most likely chronic small vessel ischemic changes. CEREBELLUM: No masses. No hemorrhage. No alteration of density. No evidence for acute infarction. EXTRAAXIAL SPACES: No fluid collections. No masses. ORBITS AND GLOBE: No intra- or extraconal masses. Normal contour of globe without masses. CALVARIUM: No fracture. PARANASAL SINUSES: No fluid or mucosal thickening. SOFT TISSUES: No mass or hematoma. OTHER: No other significant finding. IMPRESSION: MILD CHRONIC MICROVASCULAR ISCHEMIA. NO ACUTE IMAGING FINDINGS IN THE BRAIN. EVIDENCE OF ACUTE STROKE: NO. COMMENT: Quality ID # 436: Final reports with documentation of one or more dose reduction techniques (e.g., Automated exposure control, adjustment of the mA and/or kV according to patient size, use of iterative reconstruction technique) TECHNICAL DOCUMENTATION: JOB ID: [id number] [employer]- All Rights Reserved Reading location - IP/workstation name: [email or web address]
== END ==
LOC: RAD 16:37
PROVIDERS: ATTEND Internal Medicine
DX: R41.3 Other amnesia (principal)
CPT/HCPCS: 70450

== ENCOUNTER → 2018-11-14 | Outpatient (CLI) | payer MEDICARE, BC ==
--- NOTE | 2018-11-14 13:13 | RADIOLOGY REPORT (SQ) ---
EXAM DESCRIPTION: CT ABD/PELVIS NO ORAL OR IV COMPLETED DATE/TIME: 11/14/2018 12:52 pm REASON FOR STUDY: R10.32 LEFT LOWER QUADRANT PAIN R10.32 LEFT LOWER QUADRANT PAIN COMPARISON: Abdominal ultrasound 04/11/2018 CT abdomen pelvis 04/06/2018, 03/05/2018, 05/13/2010 Next TECHNIQUE: CT scan of the abdomen and pelvis performed without intravenous or oral contrast. Images reviewed with lung, soft tissue, and bone windows. Reconstructed coronal and sagittal MPR images revi ewed. All images stored on PACS. All CT scanners at this facility use dose modulation, iterative reconstruction, and/or weight based d osing when appropriate to reduce radiation dose to as low as reasonably achievable (ALARA). [facility]: Dose Right [facility]: CareDose [facility]: Dose Right [facility]: Teradose 4D [facility]: [employer] RADIATION DOSE: CT Rad equipment meets quality standard of care and radiation dose reduction techniq ues were employed. CTDIvol: 4.0 mGy. DLP: 208 mGy-cm.mGy. LIMITATIONS: None. FINDINGS: LOWER CHEST: Very heavy coronary artery calcifications. The lung bases are clear. NON-CONTRASTED LIVER, SPLEEN, ADRENALS: Evaluation limited by lack of IV contrast. No identified sign ificant masses. PANCREAS: No masses. No peripancreatic inflammatory changes. GALLBLADDER: Surgically absent RIGHT KIDNEY AND URETER: No solid masses. Assessment limited by lack of IV contrast. 2 cm right uppe r pole, 3 cm right midpole renal cortical cysts. Multiple tiny intrarenal nonobstructive collecting system stones. No right ureteral calculi. No hydronephrosis or hydroureter. LEFT KIDNEY AND URETER: No suspicious masses. Assessment limited by lack of IV contrast. No signifi cant calcifications. No hydronephrosis or hydroureter. AORTA AND RETROPERITONEUM: No aneurysm. No retroperitoneal masses or adenopathy. Ectasia bilateral p roximal common iliac arteries 1.6 cm in diameter. BOWEL AND PERITONEAL CAVITY: No obvious masses or inflammatory changes. No free fluid. APPENDIX: Normal. PELVIS, BLADDER, AND ABDOMINAL WALL:No abnormal masses. No free fluid. Bladder normal. Normal size p rostate with radiotherapy treatment markers present BONES: Diffuse multilevel degenerative disc changes lumbar spine OTHER: No other significant finding. IMPRESSION: No CT findings to explain history of left lower quadrant pain COMMENT: Quality ID # 436: Final reports with documentation of one or more dose reduction techniques (e.g., Automated exposure control, adjustment of the mA and/or kV according to patient size, use of iterative reconstruction technique) TECHNICAL DOCUMENTATION: JOB ID: [id number] [employer]- All Rights Reserved Reading location - IP/workstation name: [email or web address]
== END ==
LOC: RAD 12:36
PROVIDERS: ATTEND Internal Medicine
DX: R10.32 Left lower quadrant pain (principal)
CPT/HCPCS: 74176

== ENCOUNTER 2019-03-23 10:50 | Day surgery (SDC) | payer MEDICARE, BC ==
[~2019-03-23 10:50] MED LIST changes: -BUPIVACAINE INJ/PF LIPOSOME/PF 266 MG/20 ML SDV INJ PRN; -CEFAZOLIN INJ 1 GM VIAL IV PRN; -CEFAZOLIN INJ 1 GM VIAL ONE; +CHONDR SU A NA/HYALUR INTRAOC KIT (SURGICARE) ONE; -CLINDAMYCIN 600 MG/D5W RTU 600 MG/50 ML RTUPB IV PRN; +EPINEPHRINE INJ/PF 1 MG/1 ML AMPULE ONE; -IBUPROFEN 800 MG in NORMAL SALINE 250 ML IV PRN; -LACTATED RINGERS 1000 ML IV PRN; -LANSOPRAZOLE 15 MG TAB.RAP.DR ONE; -LANSOPRAZOLE 15 MG TAB.RAP.DR PO PRN; -LIDOCAINE 0.5% INJ-PF (5 MG/ML) 50 ML SDV SUBCUT PRN; +LIDOCAINE 1% INJ-PF (10 MG/ML) 30 ML SDV ONE; -OXYCODONE HCL SR 10 MG TABLET PO ONE; -OXYCODONE HCL SR 10 MG TABLET PO PRN; -VANCOMYCIN HCL 1,000 MG in DEXTROSE 5%-WATER 250 ML IV PRN
[2019-03-23] MEDS: TETRACAINE HCL 0.5% OPH SOLN 4 ML OS PRN ×3 (11:35→12:12)
[2019-03-23] MEDS: CYCLOPENTOLATE 0.2%/PHENYLEPHRINE 1% OPH SOLN 2 ML OS PRN ×3 (11:35→11:55)
[2019-03-23] MEDS: BESIFLOXACIN HCL 0.6% OPH SUSP 5 ML BOTTLE OS PRN ×4 (11:35→12:40)
[2019-03-23] MEDS: KETOROLAC TROMETHAMINE 0.45% 4 DROP/0.4 ML DROPERETTE OS PRN ×2 (11:35→11:45)
[2019-03-23] MEDS: TROPICAMIDE 1% OPH SOLN 15 ML OS PRN ×3 (11:35→11:55)
[2019-03-23] MEDS ORDERED: MIDAZOLAM 2 MG/2 ML INJ ONE (12:07)
[2019-03-23] MEDS: DORZOLAMIDE HCL 2%/TIMOLOL MALEAT 0.5% OPH SOLN 10 ML OS PRN ×2 (12:40)
--- NOTE | 2019-03-25 09:44 | Operative Report ---
Operative Report-[facility] Operative Report: PREOPERATIVE DIAGNOSIS: Nuclear, cortical and posterior subcapsular cataract, left eye POSTOPERATIVE DIAGNOSIS: Nuclear, cortical and posterior subcapsular cataracts, left eye PROCEDURE: Phacoemulsification and posterior chamber intraocular lens implant, left eye PROCEDURE DATE: [March 23, 2019] SURGEON: Jasbir Saini MD Next COAL WHEELER: [Vanessa] ANESTHESIA: Topical with IV sedation next COMPLICATIONS: None TISSUE TO PATHOLOGY: None ESTIMATED BLOOD LOSS: None INDICATION FOR SURGERY: [Mr. Duke is a 84 year old] Who presents to our clinic complaining of difficulty seeing, to read and drive due to blurry vision in both eyes. On examination, she was found to have best corrected visual acuity of [20/40] in the left eye. Ophthalmoscopy revealed a [3+] nuclear, [2+] corneal degeneration in the left eye with normal appearing cornea, vitreous, retina and optic nerve. I discussed the findings of the exam with the patient. We discussed the risks, benefits and alternatives of cataract extraction and intraocular lens implant in the left eye as a means of improving her vision. Risks that were discussed with the patient include infection, bleeding, retinal detachment and possible need for additional surgery. The patient understands that she may need to wear glasses after surgery. After discussion, the patient indicated her interest in having this procedure performed by signing an informed witness consent form. REPORT OF PROCEDURE: On the day of surgery, the patient was given a topical ap plication to the left eye to consist of drop of Tetracaine 0.5%, tropicamide 1%, Cyclomidril, Besivance 0.6% and Acular 0.45%. The patient was then taken to the operating room in a supine position in a standard eye bed. Intravenous sedation was administered and she was prepped and draped in the standard fashion. A timeout was performed to confirm the surgical site. Attention was directed to the left eye where a paracentesis was created at the 5:30 position at the corneal limbus with a 15 degree blade. The anterior chamber was filled with 0.3 mL of 1% methylparaben free lidocaine and after 30 seconds the anterior chamber was filled with viscoelastic material. A 3 plane corneal incision was then made at the 3 o'clock position at the cornea limbus with a keratome. A continuous curvilinear capsulorrhexis was then made in the anterior capsule of the lens with a cystotome. The lens was hydrodissected using balanced saline solution. The lens nucleus was then removed by phacoemulsification using the stop and chop technique. CDE [12.12 ]. The remaining cortical material was then removed from the posterior capsular bag using irrigation and aspiration. The posterior capsule bag was filled with viscoelastic material and a lens implant was inserted into the posterior capsule bag. I have chosen for this case is a one piece acrylic lens from [employer] model [[id number]], serial number [[id number]], lens power [22.0]. The lens was removed from its package, inspected and found to be free of defects it was loaded into a Stoddard D reject opener. The reject opener was passed through the temporal wound and the lens was advanced into the posterior capsular bag. The lens implant was centered in the posterior capsular bag with the Empire spatula the viscoelastic material was removed from the eye using irrigation and aspiration. The wounds were closed by stromal hydration and they were tested with the Weck-Arlene sponges and found to have no leaks. Intraocular pressure was assessed by manual palpitation found to be with in the physiologic range. The drape and speculum were removed. Drops of Durezol, Combigan and gatifloxacin were instilled in the left eye. The patient was then taken to the recovery room in good condition. The patient tolerated the procedure very well. The patient was given a prescription for gatifloxacin, Durezol and Ilervo to use every 2 hours while awake today. She will return my clinic tomorrow for follow-up evaluation.
== END 2019-03-23 13:30 | disposition home or self-care (01) ==
LOC: SC 10:50
PROVIDERS: ATTEND Ophthalmology
DX: H25.812 Combined forms of age-related cataract, left eye (principal); Z85.46 Personal history of malignant neoplasm of prostate
CPT/HCPCS: 66984; J2250; J3490 ×3; A9270; J0171; 142

== ENCOUNTER → 2019-05-11 | Outpatient (CLI) | payer MEDICARE, BC ==
--- NOTE | 2019-05-11 15:57 | RADIOLOGY REPORT (SQ) ---
EXAM DESCRIPTION: HIP LEFT AP/LATERAL COMPLETED DATE/TIME: 05/11/2019 3:14 pm REASON FOR STUDY: PAIN IN LEFT HIP M25.552 PAIN IN LEFT HIP COMPARISON: None. NUMBER OF VIEWS: Two views. TECHNIQUE: AP pelvis and additional frog-leg view of the left hip. LIMITATIONS: None. FINDINGS: MINERALIZATION: Normal. LEFT HIP: No fracture or dislocation. No worrisome bone lesions. RIGHT HIP: No fracture or dislocation. No worrisome bone lesions. PUBIS AND ISCHIUM: No fracture. PELVIS: No fracture. SACRUM: No fracture or dislocation. No worrisome bone lesions. LOWER LUMBAR SPINE: Lower lumbar degenerative changes are suggested. SOFT TISSUES: No findings. OTHER: No other significant finding. IMPRESSION: Normal left hip. Lower lumbar degenerative changes. COMMENT: Pelvic fractures are often occult on plain radiographs. If strong clinical suspicion for fracture, recommend CT or MR. TECHNICAL DOCUMENTATION: JOB ID: [id number] [employer]- All Rights Reserved Reading location - IP/workstation name: [email or web address]
== END ==
LOC: OD 13:12
PROVIDERS: ATTEND Internal Medicine
DX: M25.552 Pain in left hip (principal)

== ENCOUNTER → 2019-06-19 | Outpatient (CLI) | payer MEDICARE, BC ==
--- NOTE | 2019-06-19 12:25 | RADIOLOGY REPORT (SQ) ---
EXAM DESCRIPTION: MRI LUMBAR SPINE WITHOUT COMPLETED DATE/TIME: 06/19/2019 11:56 am REASON FOR STUDY: RADICULOPATHY, LUMBAR REGION M54.16 RADICULOPATHY, LUMBAR REGION COMPARISON: MRI 01/01/2012, left hip radiographs 05/11/2019 TECHNIQUE: Sagittal and Axial imaging includes T1, T2, STIR and gradient echo sequences. Coronal T2/ HASTE imaging. LIMITATIONS: None. FINDINGS: VISUALIZED UPPER ABDOMEN: Limited evaluation. No acute or suspicious findings suggested. SEGMENTATION: No transitional anatomy. The lowest well-developed disc space is labeled L5-S1. ALIGNMENT: Grade 1 anterolisthesis of L2 on L3. VERTEBRAE: Intact. BONE MARROW: Normal. No marrow replacement or reactive changes. DISC SIGNAL: Discs are narrowed from L2-S1. Decreased T2 signal intensity. POSTERIOR ELEMENTS: Generally intact. No pars defect evident. HARDWARE: None in the spine. CORD AND CONUS: Normal in size and signal intensity. Conus at the L2 level. 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 L1-L2: No significant spinal stenosis or exit foraminal stenosis. L2-L3: There is unroofing of the disc secondary to the anterolisthesis of L2. Circumferential disc b ulging. Facet and ligament hypertrophy. This results in mild central canal stenosis and bilateral f oraminal stenoses. L3-L4: Asymmetric disc bulging to the right. This narrows the right neural foramen and appears to co ntact the exiting nerve root just outside the spinal canal. This also displaces the traversing nerve roots. There is moderate central canal stenosis secondary to the disc changes and to facet and liga ment hypertrophy. L4-L5: Marked central canal stenosis secondary to a left paracentral disc protrusion the and facet an d ligament hypertrophy. Bilateral foraminal stenoses. L5-S1: Midline disc bulge that is slightly displaces the traversing nerve root on the right. No cent ral canal or foraminal stenosis. LOWER THORACIC: Incompletely imaged. No stenosis seen. SACRUM: Visualized upper sacrum intact. OTHER: No other significant findings. IMPRESSION: Grade 1 anterolisthesis of L2 on L3. Multilevel disc changes with varying degrees of ce ntral canal and foraminal stenoses as described. Most significant findings are at L4-5 where there i s marked central canal stenosis with a left paracentral disc protrusion and facet and ligament hypert rophy. There are bilateral foraminal stenoses. TECHNICAL DOCUMENTATION: JOB ID: [id number] 2010 [employer]- All Rights Reserved Reading location - IP/workstation name: [email or web address]
== END ==
LOC: RAD 10:54
PROVIDERS: ATTEND Orthopaedic Surgery
DX: M51.16 Intervertebral disc disorders with radiculopathy, lumbar region (principal); M48.061 Spinal stenosis, lumbar region without neurogenic claudication
CPT/HCPCS: 72148

== ENCOUNTER → 2019-06-27 | Outpatient (CLI) | payer MEDICARE, BC ==
--- NOTE | 2019-06-27 15:44 | RADIOLOGY REPORT (SQ) ---
EXAM DESCRIPTION: BARIUM SWALLOW ESOPHAGUS COMPLETED DATE/TIME: 06/27/2019 2:33 pm REASON FOR STUDY: DYSPHAGIA (R13.10) R13.10 DYSPHAGIA, UNSPECIFIED COMPARISON: None. TECHNIQUE: Under fluoroscopic guidance, patient ingested effervescent granules followed by thick and thin barium. Fluoroscopic spot images and routine radiographic images acquired and stored on PACS. 12 MM BARIUM TABLET GIVEN: Yes. No significant delay in passage. LIMITATIONS: None. FLUOROSCOPY TIME: FLUORO TIME: 1.7 minutes of fluoroscopy was used. 6 images saved to PACS. FINDINGS: NEUROMUSCULAR COORDINATION OF SWALLOW: Normal. No aspiration. ESOPHAGEAL MOTILITY: Mild esophageal dysmotility. Tertiary contractions seen throughout the esophagu s. ESOPHAGEAL MUCOSA: Mild mucosal thickening of the distal esophagus with feline appearance. GASTRO-ESOPHAGEAL JUNCTION: Small sliding hiatal hernia with mild gastroesophageal reflux. 12 mm bar ium tablet passed through the GE junction without delay. NON-GI TRACT STRUCTURES: No significant finding. OTHER: No other significant finding. IMPRESSION: ESOPHAGEAL DYSMOTILITY WITH MILD MUCOSAL THICKENING AND FELINE APPEARANCE OF THE DISTAL ESOPHAGUS CONSISTENT WITH ESOPHAGITIS. NO STRICTURES IDENTIFIED. SMALL HIATAL HERNIA AND MILD REFLU X IDENTIFIED. COMMENT: Quality ID [id number]: Final reports for procedures using fluoroscopy that document radiation exp osure indices, or exposure time and number of fluorographic images (if radiation exposure indices are not available) TECHNICAL DOCUMENTATION: JOB ID: [id number] 2010 [employer]- All Rights Reserved Reading location - IP/workstation name: [email or web address]
== END ==
LOC: RAD 13:40
PROVIDERS: ATTEND Internal Medicine
DX: K21.0 Gastro-esophageal reflux disease with esophagitis (principal); K44.9 Diaphragmatic hernia without obstruction or gangrene; R13.10 Dysphagia, unspecified
CPT/HCPCS: 74220